=== PATIENT | female | born 1990 | race Caucasian/White ===

== ENCOUNTER 2018-10-12 09:27 | Emergency (ER) | payer MEDICAID ==
[2018-10-12 09:27] VITALS: BMI 41.3
[2018-10-12 11:00] VITALS: RESP 18
[2018-10-12 11:27] LABS: BASO % 0.2 % (0.0-2.0); EOS % 0.5 % (0.0-4.0); HEMOGLOBIN 12.7 g/dL (12.0-16.0); LYMPH # 3.4 K/uL (1.0-4.3); LYMPH % 34.9 % (20.0-40.0); MEAN CELL VOLUME 84.2 fl (81.0-99.0); MEAN CORPUSCULAR HEMOGLOBIN 27.5 pg (27.0-31.0); MEAN CORPUSCULAR HGB CONC 32.6 g/dL (33.0-37.0); MEAN PLATELET VOLUME 8.1 fl (7.2-11.7); MONO # 0.6 K/uL (0.0-0.8); MONO % 6.4 % (0.0-10.0); NEUT # 5.7 K/uL (1.8-7.0); NRBC % 0.5 % (0.0-0.0); RBC 4.61 Mil/uL (3.80-5.20); RED CELL DISTRIBUTION WIDTH 15.2 % (11.5-14.5); WHITE BLOOD COUNT 9.8 K/uL (4.8-10.8)
[2018-10-12 11:41] LABS: SQUAMOUS EPITHIAL 24 /hpf (0-5); URINE BACTERIA RARE (<OCC); URINE BILIRUBIN NEGATIVE (NEGATIVE); URINE BLOOD SMALL (NEGATIVE); URINE CLARITY CLOUDY (Clear); URINE COLOR YELLOW (YELLOW); URINE GLUCOSE (UA) NEG (NEGATIVE); URINE LEUKOCYTE ESTERASE TRACE Leu/uL (Negative); URINE PROTEIN NEGATIVE (NEGATIVE); URINE UROBILINOGEN 0.2-1.0 mg/dL (0.2-1.0)
[2018-10-12 11:43] LABS: BLOOD UREA NITROGEN 10 mg/dl (7-17); CALCIUM 9.7 mg/dL (8.4-10.2); GFR NON-AFRICAN AMERICAN > 60
--- NOTE | 2018-10-12 11:44 | ED PDOC ---
HPI: Abdomen Time Seen by Provider: 10/12/18 10:31 Chief Complaint (Nursing): Abdominal Pain Chief Complaint (Provider): Abdominal Pain History Per: Patient History/Exam Limitations: no limitations Onset/Duration Of Symptoms: Days (x1) Current Symptoms Are (Timing): Still Present Location Of Pain/Discomfort: Suprapubic Additional Complaint(s): 28 year old female with a past medical history of hypertension who is presenting to the ED for evaluation of lower abdominal pain onset yesterday. Patient states that yesterday she found out that she was using a home test. She admits that she doesnt remember her last period as they are very irregular and denies any vaginal bleeding or discharge. Of note, patient reports that she has had 1 previous full term with delivery. PMD: none provided Past Medical History Reviewed: Historical Data, Nursing Documentation, Vital Signs Vital Signs: Last Vital Signs Temp 97 F L 10/12/18 09:53 Pulse 87 10/12/18 09:53 Resp 18 10/12/18 09:53 BP 143/74 10/12/18 09:53 Pulse Ox 100 10/12/18 09:53 - Medical History PMH: HTN Denies: Chronic Kidney Disease, Sexually Transmitted Disease - Surgical History Surgical History: - Family History Family History: States: Unknown Family Hx - Social History Current smoker - smoking cessation education provided: No Alcohol: Social Drugs: Denies - Immunization History Hx Tetanus Toxoid Vaccination: No Hx Influenza Vaccination: Yes (December 2016) Hx Pneumococcal Vaccination: No - Home Medications Home Medications: Ambulatory Orders Medication Instructions Recorded Ibuprofen [Advil Liqui-Gels] 2 cap PO PRN PRN 01/22/17 Nitrofurantoin Macrocrystals 100 mg PO BID #10 cap 10/12/18 [Macrobid] - Allergies Allergies/Adverse Reactions: Allergies Allergy/AdvReac Type Severity Reaction Status Date / Time No Known Allergies Allergy Verified 01/22/17 12:34 Review of Systems ROS Statement: Except As Marked, All Systems Reviewed And Found Negative Gastrointestinal: Positive for: Abdominal Pain Genitourinary Female: Negative for: Vaginal Discharge, Vaginal Bleeding Physical Exam - Reviewed Nursing Documentation Reviewed: Yes Vital Signs Reviewed: Yes - Physical Exam Appears: Positive for: Well, Non-toxic, No Acute Distress Head Exam: Positive for: ATRAUMATIC, NORMAL INSPECTION, NORMOCEPHALIC Skin: Positive for: Normal Color, Warm, DRY Eye Exam: Positive for: Normal appearance Neck: Positive for: Normal Cardiovascular/Chest: Positive for: Regular Rate, Rhythm. Negative for: Murmur Respiratory: Positive for: Normal Breath Sounds. Negative for: Respiratory Distress Gastrointestinal/Abdominal: Positive for: Normal Exam, Soft. Negative for: Tenderness, Distended, Guarding, Rebound Back: Positive for: Normal Inspection. Negative for: L CVA Tenderness, R CVA Tenderness Extremity: Positive for: Normal ROM. Negative for: Deformity, Swelling Neurologic/Psych: Positive for: Alert, Oriented (x3). Negative for: Motor/ Sensory Deficits - Laboratory Results Result Diagrams: 10/12/18 10:21 10/12/18 10:21 - ECG O2 Sat by Pulse Oximetry: 100 (RA) Pulse Ox Interpretation: Normal Medical Decision Making Medical Decision Making: Time: 10:21 A/P: lower abdominal pain with early --Labs, ultrasound to r/o ectopic --Reassess patient [id number] Confirmed IUP. Pt at approx 7 weeks gestation. [facility]. Macrobid for UTI. -- Scribe Attestation: Documented by Kamilah Jeff, acting as a scribe for Tara Dennis MD. Provider Scribe Attestation: All medical record entries made by the Scribe were at my direction and person ally dictated by me. I have reviewed the chart and agree that the record accurately reflects my personal performance of the history, physical exam, medical decision making, and the department course for this patient. I have also personally directed, reviewed, and agree with the discharge instructions and disposition. Disposition - Clinical Impression Clinical Impression: , Urinary tract infection affecting care of mother in first trimester, antepartum - Patient ED Disposition Is Patient to be Admitted: No - Disposition Disposition: Routine/Home Disposition Time: 12:47 Condition: IMPROVED Prescriptions: Nitrofurantoin Macrocrystals [Macrobid] 100 mg PO BID #10 cap Instructions: Asymptomatic Bacteriuria, Medications and , - The First Month, Urinary Tract Infection, Adult (DC) Forms: [employer] ([place])
--- NOTE | 2018-10-12 11:52 | US ---
PROCEDURE: OB Pelvic Ultrasound HISTORY: Lower abdominal pain LMP 08/28/2018 COMPARISON: None available. FINDINGS: UTERUS: Gestational sac: Present mean sac diameter 2.2 cm corresponding to 6 weeks 6 days Heart rate: 130 bpm. age (Ultrasound estimated): 7 weeks 0 days +/-0 weeks 3 days Maria T-gestational hemorrhage: None. Date of delivery (Ultrasound estimated) : 05/31/2019 Uterus measures 9.3 x 6.6 by 7.7 cm. Normal in size and appearance. CERVIX: RIGHT OVARY: Measures 3.6 x 2.8 x 2.5 cm. No mass lesion. Normal flow. LEFT OVARY: Measures 3.6 x 3.5 x 2.9 cm. No solid mass. Normal flow. FREE FLUID: None. OTHER FINDINGS: None. IMPRESSION: Single intrauterine gestation with cardiac activity whose ultrasound parameters correspond to an ultrasound estimate of 7 weeks 0 days +/-0 weeks 3 days with an estimated date of delivery of 05/31/2019. Clinical dates are 6 weeks 3 days with an estimated date of delivery by LMP of 06/04/2019. No perigestational hemorrhage seen. No adnexal masses.
[2018-10-12 13:16] VITALS: BP 136/74; PULSE 74; TEMP 98.3; O2SAT 98
== END 2018-10-12 13:15 | disposition home or self-care (01) ==
LOC: H.ER 09:27
DX: O23.41 Unspecified infection of urinary tract in pregnancy, first trimester (principal); Z3A.01 Less than 8 weeks gestation of pregnancy; O16.1 Unspecified maternal hypertension, first trimester

== ENCOUNTER 2018-10-26 15:22 | Emergency (ER) | payer MEDICAID ==
[2018-10-26 15:22] VITALS: BMI 41.3
[2018-10-26 15:50] VITALS: RESP 18; TEMP 99.4
[2018-10-26 16:42] LABS: BASO % 0.4 % (0.0-2.0); EOS # 0.1 K/uL (0.0-0.7); EOS % 0.5 % (0.0-4.0); LYMPH # 3.3 K/uL (1.0-4.3); LYMPH % 29.1 % (20.0-40.0); MEAN CELL VOLUME 84.4 fl (81.0-99.0); MEAN CORPUSCULAR HEMOGLOBIN 27.5 pg (27.0-31.0); MEAN CORPUSCULAR HGB CONC 32.6 g/dL (33.0-37.0); MEAN PLATELET VOLUME 7.8 fl (7.2-11.7); MONO # 0.6 K/uL (0.0-0.8); MONO % 5.1 % (0.0-10.0); NEUT # 7.4 K/uL (1.8-7.0); NEUT % 64.9 % (50.0-75.0); RBC 4.35 Mil/uL (3.80-5.20); WHITE BLOOD COUNT 11.4 K/uL (4.8-10.8)
[2018-10-26 16:49] LABS: ALB/GLOB RATIO 1.1 (1.0-2.1); ALBUMIN 4.3 g/dL (3.5-5.0); ALT/SGPT 22 U/L (9-52); AST/SGOT 19 U/L (14-36); BLOOD UREA NITROGEN 10 mg/dl (7-17); CALCIUM 9.6 mg/dL (8.4-10.2); GFR NON-AFRICAN AMERICAN > 60
--- NOTE | 2018-10-26 17:00 | ED PDOC ---
HPI: Abdomen Time Seen by Provider: 10/26/18 16:30 Chief Complaint (Nursing): Abdominal Pain Chief Complaint (Provider): 9 wks preg/ abd pain History Per: Patient History/Exam Limitations: no limitations Onset/Duration Of Symptoms: Days, Persistent Outside of [place] travel?: No Severity: None Pain Scale Rating Of: 5 Location Of Pain/Discomfort: Suprapubic Quality Of Discomfort: Cramping Associated Symptoms: Nausea Exacerbating Factors: None Alleviating Factors: None Additional History Per: Patient Additional Complaint(s): 28 yr old 9 weeks preg, female with hx of Hypertension presents to the ED c/o suprapubic pain for 2 days. Pt states she was seen in ED for same and dx with UTI for which she was given Macrobid for 5 days. Pt reports she took full course but states suprapubic pain did not completely subside. Pt denies nausea/vomiting, vaginal bleeding, vaginal discharge, itchiness or burning, frequency, urgency and fever. Abnormal Vaginal Bleeding: No Last Menstral Period: unknown : 2 Para: 1 Miscarriage: 0 Past Medical History Vital Signs: Last Vital Signs Temp 99.4 F 10/26/18 15:35 Pulse 94 H 10/26/18 15:35 Resp 18 10/26/18 15:35 BP 121/81 10/26/18 15:35 Pulse Ox 98 10/26/18 15:35 - Medical History PMH: HTN Denies: Chronic Kidney Disease, Sexually Transmitted Disease - Surgical History Surgical History: - Family History Family History: States: Unknown Family Hx - Living Arrangements Living Arrangements: With Family - Social History Alcohol: None Drugs: Denies - Immunization History Hx Tetanus Toxoid Vaccination: No Hx Influenza Vaccination: Yes (December 2016) Hx Pneumococcal Vaccination: No - Home Medications Home Medications: Ambulatory Orders Medication Instructions Recorded Ibuprofen [Advil Liqui-Gels] 2 cap PO PRN PRN 01/22/17 Nitrofurantoin Macrocrystals 100 mg PO BID #10 cap 10/12/18 [Macrobid] - Allergies Allergies/Adverse Reactions: Allergies Allergy/AdvReac Type Severity Reaction Status Date / Time No Known Allergies Allergy Verified 10/26/18 15:38 Review of Systems Constitutional: Negative for: Fever, Chills, Weakness, Malaise Eyes: Negative for: Pain ENT: Negative for: Mouth Swelling, Throat Swelling Cardiovascular: Negative for: Chest Pain Respiratory: Negative for: Cough, Shortness of Breath, SOB with Exertion Gastrointestinal: Positive for: Nausea, Abdominal Pain (suprapubic ) Genitourinary Female: Positive for: Pelvic Pain. Negative for: Dysuria, Frequency, Incontinence, Hematuria, Vaginal Discharge Skin: Negative for: Rash Neurological: Negative for: Weakness Physical Exam - Reviewed Nursing Documentation Reviewed: Yes Vital Signs Reviewed: Yes - Physical Exam Appears: Positive for: Well, Non-toxic, No Acute Distress Head Exam: Positive for: ATRAUMATIC, NORMAL INSPECTION, NORMOCEPHALIC Skin: Positive for: Normal Color (acanthosis of the neck ), Warm Eye Exam: Positive for: Normal appearance, PERRL ENT: Positive for: Normal ENT Inspection Neck: Positive for: Normal, Painless ROM Cardiovascular/Chest: Positive for: Regular Rate, Rhythm Respiratory: Positive for: CNT, Normal Breath Sounds Pulses-Radial (L): 2+ Pulses-Radial (R): 2+ Gastrointestinal/Abdominal: Positive for: Normal Exam, Soft Pelvic Exam: Positive for: Other (suprapubic tenderness ) Back: Positive for: Normal Inspection Extremity: Positive for: Normal ROM Neurological/Psych: Positive for: Awake, Alert, Normal Tone, Oriented Comments: PT IS OBESE - Laboratory Results Result Diagrams: 10/26/18 16:35 10/26/18 16:35 Lab Results: Total Bilirubin 0.6 mg/dl (0.2-1.3) 10/26/18 16:35 AST 19 U/L (14-36) 10/26/18 16:35 ALT 22 U/L (9-52) 10/26/18 16:35 Alkaline Phosphatase 52 U/L (38-126) 10/26/18 16:35 Total Protein 8.2 G/DL (6.3-8.2) 10/26/18 16:35 Albumin 4.3 g/dL (3.5-5.0) 10/26/18 16:35 Globulin 3.9 gm/dL (2.2-3.9) 10/26/18 16:35 Albumin/Globulin Ratio 1.1 (1.0-2.1) 10/26/18 16:35 Urine POC: Positive - ECG O2 Sat by Pulse Oximetry: 98 - Progress ED Course And Treament: CMP CBC UA-NEG U C&S BETA HCG OB TRANSVAG US TYLENOL 1740: PT REEVALUATED, PAIN IMPROVED AFTER TYLENOL. LAB REVIEWED NO FURTHER TX NEED. PT STATES SHE HAS [facility] AP[facility] ON WEDNESDAY AT [facility], PT ENCOURAGED TO GO TO APPOINTMENT. PT WILL BE D/C HOME. GIVEN RETURN TO ED PREC AUTIONS. Condition: Re-examined Disposition - Clinical Impression Clinical Impression: Abdominal pain during - Patient ED Disposition Is Patient to be Admitted: No Counseled Patient/Family Regarding: Diagnosis, Need For Followup - Disposition Disposition: Routine/Home Disposition Time: 17:30 Condition: GOOD Instructions: Stomach Pain in Early Print Language: TAJIK - POA Present On Arrival: None
[2018-10-26 17:07] LABS: SQUAMOUS EPITHIAL 10 /hpf (0-5); URINE BACTERIA RARE (<OCC); URINE BILIRUBIN NEGATIVE (NEGATIVE); URINE BLOOD NEGATIVE (NEGATIVE); URINE CLARITY CLOUDY (Clear); URINE COLOR YELLOW (YELLOW); URINE GLUCOSE (UA) NEG (NEGATIVE); URINE LEUKOCYTE ESTERASE NEG Leu/uL (Negative); URINE PROTEIN 30 mg/dL (NEGATIVE)
--- NOTE | 2018-10-26 17:14 | US ---
Date of service: 10/26/2018 PROCEDURE: OB Pelvic Ultrasound HISTORY: PREG, PELVIC PAIN LMP 08/28/2018 COMPARISON: None available. FINDINGS: UTERUS: Gestational sac: Gestational sac diameter 3.6 cm equal to 8 weeks 5 days gestational age. [place]-rump length 25 mm equivalent to 9 weeks 2 days gestational age. Heart rate: 177 bpm. age (Ultrasound estimated): 9 weeks 0 days Maria T-gestational hemorrhage: None. Date of delivery (Ultrasound estimated) : 05/31/2019 4 mm yolk sac identified Uterus measures 11.7 x 7.4 x 6.6 cm. Normal in size and appearance. CERVIX: Long and closed. No cervical abnormality seen. RIGHT OVARY: Not visualized LEFT OVARY: Measures 3.4 x 2.2 x 2.3 cm. No solid mass. Normal flow. FREE FLUID: None. OTHER FINDINGS: None. IMPRESSION: Single live intrauterine gestation of approximately 9 weeks 0 days. No subchorionic hemorrhage. Unremarkable left ovary. Nonvisualized right ovary.
[2018-10-26 22:41] VITALS: BP 132/73; PULSE 83; O2SAT 99
== END 2018-10-26 17:44 | disposition home or self-care (01) ==
LOC: H.ER 15:22
DX: O26.891 Other specified pregnancy related conditions, first trimester (principal); Z3A.09 9 weeks gestation of pregnancy; O16.1 Unspecified maternal hypertension, first trimester

== ENCOUNTER 2018-11-24 04:42 | Emergency (ER) | payer MEDICAID ==
[2018-11-24 04:43] VITALS: BMI 41.3
[2018-11-24 04:56] VITALS: TEMP 98.1
[2018-11-24] MEDS ORDERED: Sodium Chloride 0.9% 1,000 ML IV STA (05:22)
--- NOTE | 2018-11-24 05:33 | ED PDOC ---
HPI: Abdomen Time Seen by Provider: 11/24/18 04:46 Chief Complaint (Nursing): Abdominal Pain Chief Complaint (Provider): Abdominal Pain History Per: Patient, Customs Investigator (Staci #[id number]) History/Exam Limitations: no limitations Onset/Duration Of Symptoms: Hrs (x 3) Current Symptoms Are (Timing): Still Present Location Of Pain/Discomfort: Suprapubic Quality Of Discomfort: Sharp Associated Symptoms: Back Pain Additional Complaint(s): 28 year old () approximately 12 week female presents to the ED for evaluation of sharp, lower abdominal pain and upper buttock pain that began about 3 hours prior to arrival. Patient took Tylenol with some relief. Denies fever, nausea, vomiting, diarrhea, constipation, vaginal discharge, vaginal bleeding, dysuria, hematuria, frequency and any complications with the thus far. PMD: Dr. Willie Schneider Past Medical History Reviewed: Historical Data, Nursing Documentation, Vital Signs Vital Signs: Last Vital Signs Temp 98.1 F 11/24/18 04:44 Pulse 92 H 11/24/18 04:44 Resp 17 11/24/18 04:44 BP 133/78 11/24/18 04:44 Pulse Ox 99 11/24/18 04:44 - Medical History PMH: HTN Denies: Chronic Kidney Disease, Sexually Transmitted Disease - Surgical History Surgical History: - Family History Family History: States: Unknown Family Hx - Immunization History Hx Tetanus Toxoid Vaccination: No Hx Influenza Vaccination: Yes (December 2016) Hx Pneumococcal Vaccination: No - Home Medications Home Medications: Ambulatory Orders Medication Instructions Recorded Ibuprofen [Advil Liqui-Gels] 2 cap PO PRN PRN 01/22/17 Nitrofurantoin Macrocrystals 100 mg PO BID #10 cap 10/12/18 [Macrobid] - Allergies Allergies/Adverse Reactions: Allergies Allergy/AdvReac Type Severity Reaction Status Date / Time No Known Allergies Allergy Verified 10/26/18 15:38 Review of Systems ROS Statement: Except As Marked, All Systems Reviewed And Found Negative Constitutional: Negative for: Fever, Chills Gastrointestinal: Positive for: Abdominal Pain (lower). Negative for: Nausea, Vomiting, Diarrhea Genitourinary Female: Negative for: Dysuria, Frequency, Incontinence, Hematuria, Vaginal Discharge, Vaginal Bleeding Musculoskeletal: Positive for: Other (upper buttock pain) Physical Exam - Reviewed Nursing Documentation Reviewed: Yes Vital Signs Reviewed: Yes - Physical Exam Appears: Positive for: No Acute Distress Head Exam: Positive for: ATRAUMATIC, NORMAL INSPECTION, NORMOCEPHALIC Skin: Positive for: Normal Color, Warm, Dry Eye Exam: Positive for: EOMI, Normal appearance, PERRL Neck: Positive for: Normal, Painless ROM, Supple Cardiovascular/Chest: Positive for: Regular Rate, Rhythm. Negative for: Murmur Respiratory: Positive for: Normal Breath Sounds. Negative for: Respiratory Distress Gastrointestinal/Abdominal: Positive for: Tenderness (suprapubic). Negative for: Mass, Guarding Pelvic Exam: Positive for: External Exam Normal, Speculum Exam Normal, No Cerv. Motion Tender. Negative for: Tender Adnexa Back: Positive for: Normal Inspection. Negative for: L CVA Tenderness, R CVA Tenderness Extremity: Positive for: Normal ROM (x 4). Negative for: Deformity Neurological/Psych: Positive for: Awake, Alert, Normal Tone, Oriented (x 3]). Negative for: Motor/Sensory Deficits - ECG O2 Sat by Pulse Oximetry: 99 (RA) Pulse Ox Interpretation: Normal Medical Decision Making Medical Decision Makin:15 A&P: abdominal pain and back pain in a female. Differential diagnosis include but are not limited to: round ligament pain, constipation, gas, UTI and dehydration Less likely threatened . Not concerned for acute appendicitis. Brain Wave Technician for pelvic exam was Garland MakerJose Phan. Orders: Orders --BMP --CBC --Beta-HCG --Urine preg --Urine dip --Urine cx --UA --NS IV 1,0000 --US 7:00 --Case endorsed to Dr. Abernathy pending U/S, re-eval, and final dispo Scribe Attestation: Documented by Brenda Guthrie, acting as a scribe Lexy Encarnacion MD Provider Scribe Attestation: All medical record entries made by the Scribe were at my direction and personally dictated by me. I have reviewed the chart and agree that the record accurately reflects my personal performance of the history, physical exam, medical decision making, and the department course for this patient. I have also personally directed, reviewed, and agree with the discharge instructions and disposition. Disposition - Clinical Impression Clinical Impression: Abdominal pain in - Patient ED Disposition Is Patient to be Admitted: Transfer of Care Counseled Patient/Family Regarding: Studies Performed - Disposition Referrals: Willie Schneider MD [Primary Care Provider] - Disposition: Transfer of Care Disposition Time: 07:00 (.) Condition: STABLE Forms: [employer] (Albanian) Patient Signed Over To: Ranjit Abernathy Handoff Comments: pending U/S, re-eval, final dispo
[2018-11-24 06:42] LABS: BASO % 0.2 % (0.0-2.0); EOS # 0.1 K/uL (0.0-0.7); EOS % 0.5 % (0.0-4.0); HEMOGLOBIN 11.8 g/dL (12.0-16.0); LYMPH # 3.1 K/uL (1.0-4.3); LYMPH % 29.4 % (20.0-40.0); MEAN CELL VOLUME 84.8 fl (81.0-99.0); MEAN CORPUSCULAR HEMOGLOBIN 28.2 pg (27.0-31.0); MEAN CORPUSCULAR HGB CONC 33.2 g/dL (33.0-37.0); MEAN PLATELET VOLUME 8.3 fl (7.2-11.7); MONO # 0.7 K/uL (0.0-0.8); NEUT # 6.7 K/uL (1.8-7.0); NEUT % 62.9 % (50.0-75.0); NRBC % 0.1 % (0.0-0.0); RBC 4.19 Mil/uL (3.80-5.20); RED CELL DISTRIBUTION WIDTH 15.7 % (11.5-14.5); WHITE BLOOD COUNT 10.7 K/uL (4.8-10.8)
[2018-11-24 07:03] LABS: BLOOD UREA NITROGEN 6 mg/dl (7-17); CALCIUM 9.1 mg/dL (8.4-10.2); GFR NON-AFRICAN AMERICAN > 60
--- NOTE | 2018-11-24 07:08 | ED PDOC ---
- Laboratory Results Result Diagrams: 11/24/18 05:50 11/24/18 05:50 Interpretation Of Abn Labs: no acute - ECG O2 Sat by Pulse Oximetry: 99 (RA) - Progress ED Course And Treament: 1144: Stable. AAOx3. Pain free. Tolerated PO. Fu with pcp. SLIUP. Medical Decision Making Medical Decision Makin: Pending labs results and reevaluate. Disposition - Clinical Impression Clinical Impression: Abdominal pain in - POA Present On Arrival: None - Disposition Referrals: Willie Schneider MD [Primary Care Provider] - 11/28/18 Disposition: Routine/Home Disposition Time: 11:44 Condition: STABLE Additional Instructions: Return if not better in 3 days. Instructions: Stomach Pain in Early Forms: [facility] ED School/Work Excuse
[2018-11-24 07:13] LABS: SQUAMOUS EPITHIAL 13 /hpf (0-5); URINE BILIRUBIN NEGATIVE (NEGATIVE); URINE BLOOD NEGATIVE (NEGATIVE); URINE CLARITY CLOUDY (Clear); URINE COLOR YELLOW (YELLOW); URINE GLUCOSE (UA) NEG (NEGATIVE); URINE LEUKOCYTE ESTERASE NEG Leu/uL (Negative); URINE PROTEIN 30 mg/dL (NEGATIVE); URINE UROBILINOGEN 0.2-1.0 mg/dL (0.2-1.0)
--- NOTE | 2018-11-24 09:55 | US ---
Date of service: 11/24/2018 PROCEDURE: OB Pelvic Ultrasound HISTORY: 12 wk preg, lower abd pain/back pain LMP: 08/24/2018 COMPARISON: None available. FINDINGS: UTERUS: Gestational sac: Single live intrauterine fetus in variable presentation. BPD: 2.5 cm corresponding to 14 weeks and 1 day of gestational age. HC: 9.3 cm corresponding to 14 weeks and 2 days of gestational age. AC: 7.8 cm corresponding to 14 weeks and 2 days of gestational age. FL: 1.4 cm corresponding to 14 weeks and 1 day of gestational age. Heart rate: 152 bpm. age (Ultrasound estimated): 14 weeks and 2 day. Maria T-gestational hemorrhage: None. Date of delivery (Ultrasound estimated) : 05/23/2019 Placenta is anterior. CERVIX: Measures 3.5 cm. Long and closed. No cervical abnormality seen. RIGHT OVARY: Measures 4.6 x 3.4 x 2.3 cm. No mass lesion. Normal flow. LEFT OVARY: Not visualized. FREE FLUID: None. OTHER FINDINGS: None. IMPRESSION: Single live intrauterine fetus in variable presentation with mean gestational age of 14 weeks and 2 days. The estimated date of delivery by ultrasound is 05/23/2019. Please note this is a limited OB ultrasound performed on an emergent basis. Follow-up dedicated anatomic survey is advised.
[2018-11-24 12:13] VITALS: BP 128/78; PULSE 78; RESP 18; O2SAT 100
== END 2018-11-24 12:12 | disposition home or self-care (01) ==
LOC: H.ER 04:42
DX: O26.899 Other specified pregnancy related conditions, unspecified trimester (principal); O16.2 Unspecified maternal hypertension, second trimester; Z3A.14 14 weeks gestation of pregnancy
CPT/HCPCS: 76801; 80048; 81003; 84702; 85025; 87086; 87491; 87591; 99284; J7030

== ENCOUNTER 2018-12-17 12:00 | Emergency (ER) | payer MEDICAID ==
[2018-12-17 14:32] LABS: SQUAMOUS EPITHIAL 4 /hpf (0-5); URINE BILIRUBIN NEGATIVE (NEGATIVE); URINE BLOOD MODERATE (NEGATIVE); URINE CLARITY SLIGHTY-CLOUDY (Clear); URINE COLOR YELLOW (YELLOW); URINE GLUCOSE (UA) NEG (NEGATIVE); URINE LEUKOCYTE ESTERASE SMALL Leu/uL (Negative); URINE PROTEIN 30 mg/dL (NEGATIVE); URINE UROBILINOGEN 0.2-1.0 mg/dL (0.2-1.0)
[2018-12-17 20:43] VITALS: BP 161/60; PULSE 98; RESP 18; TEMP 97.9; O2SAT 100
== END 2018-12-17 15:15 | disposition home or self-care (01) ==
LOC: H.EROB2 12:00 → H.EROB 12:30 → H.EROB2 15:15
DX: O26.92 Pregnancy related conditions, unspecified, second trimester (principal); R30.0 Dysuria; O26.852 Spotting complicating pregnancy, second trimester; Z3A.16 16 weeks gestation of pregnancy; O23.42 Unspecified infection of urinary tract in pregnancy, second trimester

== ENCOUNTER 2018-12-19 02:35 | Emergency (ER) | payer MEDICAID ==
--- NOTE | 2018-12-19 03:30 | OBDCSUM ---
Datetime: 12/19/2018 03:21 Discharged to, Provider: Home Follow up at, Provider: Clinic Disch Instr Activity: Normal activity Disch Instr Diet: Regular Discharge Instructions, Provider: Routine instructions given Discharge Time: 12/19/2018 03:21 Follow up in weeks, Provider: DAVID for Disch Referrals: None Contraception discussed, Prov: Yes Discharge Diagnosis Prov Other: vaginal bleeding
--- NOTE | 2018-12-19 03:30 | OBHP ---
Datetime: 12/19/2018 03:20 IP Adm Impression: , intrauterine IP Admit Plan: Observation/Evaluation; Discharge home Admit Comment, IP Provider: Patient is a @ 16.5 wks history of CHTN with persistant vaginal bleeding. Patient reports she has had vaginal bleeding for past 3 days, came to ER 12/17, was noticed to have blood tinged discharge and +UTI, was started on Macrobid which patient reports she has been c ompliant with. Patient returns because she is having increased vaginal bleeding. Some cramping, other zamorano no fever, pt tolerating pain laying in bed. On speculum exam, blood tinged mucous noted, no acti ve bleeding present from cervix. Cervix appeared closed on exam. Patient at this point does not to ap pear to be actively miscarring. Patient has has no signs of chorio or active bleeding. Patient has a history of CHTN, currently not on medication and has nml BPs 120s/60s. FHR obtained and nml. All othe r vital signs stable. Patient discharged home with bleeding discharge instructions. If continued blee ding/heavier or other symptoms present return to ER. If bleeding stops, present to clinic and have fo llow up U/S done. Continue Macrobid. All questions answered Pelvic Type - PN: Adequate Extremities - PN: Normal Abdomen - PN: Normal Back - PN: Normal Breast - PN: Normal Lungs - PN: Normal Heart - PN: Normal Thyroid - PN: Normal Neurologic - PN: Normal HEENT - PN: Normal General - PN: Normal FHR - Baseline A Provider: 140 EGA AdmitDate IP: 16.5 Vital Signs Provider: Reviewed; Within Normal Limits IP Chief Complaint: Vaginal bleeding NICHD Decel Fetus A IP Provider: None Dilatation, Provider: closed Genitourinary Exam: Normal DTRs - PN: Normal Datetime: 12/17/2018 13:44 Contraction Comments Provider: absent Comments, ACOG Physical Exam: Gen: NAD Chest: RRR, S1S2 persent Lungs: CTAB Abdomen: SOft, suprapubic tenderness, ND Ext: NO pedal edema SSE: No active vaginal bleeding, thick mucoid discharge noted.
[2018-12-19 09:48] VITALS: BP 122/68; PULSE 104
== END 2018-12-19 03:28 | disposition home or self-care (01) ==
LOC: H.EROB2 02:35
DX: O20.9 Hemorrhage in early pregnancy, unspecified (principal); Z3A.16 16 weeks gestation of pregnancy

== ENCOUNTER 2018-12-19 10:48 | Emergency (ER) | payer MEDICAID ==
--- NOTE | 2018-12-19 14:07 | US ---
Date of service: 12/19/2018 PROCEDURE: Limited ultrasound HISTORY: Vaginal bleeding, 16.5 weeks COMPARISON: 10/26/2018. First trimester ultrasound 11/24/2018. Limited ultrasound. Summary of findings on the comparison examination: Single live intrauterine fetus in variable presentation with mean gestational age of 14 weeks and 2 days. The estimated date of delivery by ultrasound is 05/23/2019. TECHNIQUE: Standard protocol for this study/examination. FINDINGS: Cephalic presentation. Fundal placenta. No evidence of abruption or previa Gestational age derived from LMP 16 weeks 5 days. LIS 05/31/2019. Gestational age derived from the following biometric parameters 17 weeks 3 days. LIS 05/26/2019. Biparietal diameter 3.71 cm Head circumference 14.22 cm Abdominal circumference 11.72 cm Femur length 2.42 cm Estimated weight 192.9 g Calculated cardiac rate 155 beats per min. Closed cervix measuring 3.00 cm IMPRESSION: Seventeen weeks 3 days live intrauterine gestation. Gestational concordance noted. Adequate interval progression compared to the prior study.
--- NOTE | 2018-12-19 14:08 | US ---
Date of service: 12/19/2018 PROCEDURE: Transvaginal ultrasound HISTORY: Vaginal bleeding, 16.5 weeks COMPARISON: 10/26/2018, 11/24/2018. TECHNIQUE: Standard protocol for this study/examination. FINDINGS: Findings described in greater detail in the Ob component of this study and summarized below in the Impression: IMPRESSION: Seventeen weeks 3 days live intrauterine gestation. Gestational concordance noted. Adequate interval progression compared to the prior study.
--- NOTE | 2018-12-19 15:24 | OBDCSUM ---
Datetime: 12/19/2018 15:10 Discharged to, Provider: Home Follow up at, Provider: Kishore Presley Instr Activity: Bedrest Disch Instr Diet: Regular Discharge Diet restrict Prov: Pelvic Rest Discharge Diagnosis, Provider: Antepartum Bleeding Discharge Time: 12/19/2018 15:10 Follow up in weeks, Provider: 12/29/18 Disch Referrals: None Disch Activity Restrictions: No sexual activity; Nothing in vagina - [place], tampons, douche Datetime: 12/19/2018 03:21 Discharge Instructions, Provider: Routine instructions given Contraception discussed, Prov: Yes Discharge Diagnosis Prov Other: vaginal bleeding
--- NOTE | 2018-12-19 15:24 | OBHP ---
Datetime: 12/19/2018 11:26 IP Adm Impression: , intrauterine IP Admit Plan: Observation/Evaluation; Discharge home Admit Comment, IP Provider: 28 y/o , 16.5 weeks based on LMP 08/24/18 with LIS of 05/31/19 presen ts to [facility] with vaginal bleeding and cramping. Patient was seen on 12/17/18 for vaginal spotting and + UTI, discharged on Macrobid x 7 days. Patient's urinary symptoms improved but vaginal spotting persis eted and grtadually increased. So patient came in on 12/19/18, evaluated. Patient went to [facility] for US however patient was sent back to [facility]. Denies LOF, CTx, or abdominal pain, back pain, vaginal discharge. Denies any other symptoms. Last sexal activity few weeks ago. care: [place]. No complications so far in this per patient. Had 1st Trimes ter US done. OBHx: CS at 40 weeks due to failed induction, Hx gestational HTN in G1 PMHx: Gestation HTN in 1st , CHTN PSHx: C section Allergies: Denies Meds: PNVs F/H: DM- Mother Social Hx: Denies smoking,drugs, alcohol PE Gen: NAD Chest: RRR, S1S2 persent Lungs: CTAB Abdomen: Soft, mild lower abdominal tenderness, ND Ext: NO pedal edema SSE: Mild vaginal bleeding mixed with discharge SVE: Cervix: external os soft, fingertip. A/P: 28 y/o , 16.3 weeks based on LMP 08/24/18 with LIS of 05/31/19 with vaginal bleeding. - FHR 160s - No CTx on toco - TV and OB US and growth, CLM and Placenta evaluation Case discussed with Dr. Luis Fernando Bonilla, PGY1 OB Hospitalist Addendum: Pt seen and examined by me. Agree w/ above. 28 yo at 16+5 wks w / bleeding x 4 days. Pt reports that she sees the blood w/ wiping. Pt also reports mild cramping. On exam, pt appears comfortable. VE: ext os slightly open/ long. Spec: light to mod blood in vault, no active bleeding seen. U/s: SLIUP at 17+3 wks, closed cervix measuring 3 cm. Reviewed results w/ the pt. Explained that this may be an early miscarriage or may resolve. Rec that she go home, rest and po hydrate. Redc pelvic rest as well Pt given SAB precautions. Pt has a f/u appoint w/ Kishore Gutierrez on 12/29/2018. (ES) Abdomen - PN: Normal Back - PN: Normal Lungs - PN: Normal Heart - PN: Normal Neurologic - PN: Normal General - PN: Normal FHR - Baseline A Provider: 160 Membranes, Provider: Intact Contraction Comments Provider: None Comments, ACOG Physical Exam: Gen: NAD Chest: RRR, S1S2 persent Lungs: CTAB Abdomen: SOft, suprapubic tenderness, ND Ext: NO pedal edema SSE: Mild vaginal bleeding mixed with discharge SVE: Cervix: external os soft, fingertip. EGA AdmitDate IP: 16.5 Vital Signs Provider: Reviewed; Within Normal Limits IP Chief Complaint: Vaginal bleeding Dilatation, Provider: 0 Effacement, Provider: 0 Station, Provider: -3 Genitourinary Exam: Abnormal
[2018-12-19 19:32] VITALS: BP 138/73; PULSE 111; O2SAT 98
== END 2018-12-19 15:30 | disposition home or self-care (01) ==
LOC: H.EROB2 10:48
DX: O20.9 Hemorrhage in early pregnancy, unspecified (principal); O26.92 Pregnancy related conditions, unspecified, second trimester; R10.2 Pelvic and perineal pain; Z3A.16 16 weeks gestation of pregnancy

== ENCOUNTER 2018-12-21 13:12 | Emergency (ER) | payer MEDICAID ==
[2018-12-21 13:40] VITALS: BMI 39.9
--- NOTE | 2018-12-21 14:51 | US ---
Date of service: 12/21/2018 PROCEDURE: OB Pelvic Ultrasound HISTORY: Undetectable FHR by Doppler COMPARISON: 12/19/2018. FINDINGS: UTERUS: There is no evidence of intrauterine gestation. The central endometrial echo complex is heterogeneous and measures 16 mm. CERVIX: Measures 3.4 cm. FREE FLUID: None. OTHER FINDINGS: None. IMPRESSION: No evidence of intrauterine gestation. The central endometrial echo complex is heterogeneous and measures 16 mm.
--- NOTE | 2018-12-21 15:49 | OBHP ---
Datetime: 12/21/2018 13:42 IP Adm Impression: , intrauterine IP Chief Complaint Other: Vaginal bleeding, no FHR on doppler IP Admit Plan: Observation/Evaluation Admit Comment, IP Provider: HPI: Fanny is a 28 year old at 17.0 weeks via LMP and first tri US who was sent to the ED after a routine OB visit today. She was seen several times in the last 3 days for vaginal bleeding and cramping. She had an US done 12/19 that showed a viable IUP consistent with her LMP/LIS. She also had a speculum exam that showed a closed cervix. Later that day the patient rep orts she went to [facility] for the same complaint and she was told there was a heart rate s een and her cervix was still closed. After she went home that night she said she had worse cramping a nd passed several clots the size of her palm, but nothing else. She went to her regularly scheduled O B visit today and they could not find a FHR with doppler so she was sent here for further evaluation. She continues to have vaginal bleeding, though it is less than before. provider: Kishore Gutierrez (established care at the [facility]) History 1 previous at term after a failed IOL PMH Chronic HTN - she is not currently being treated for this/seeking care for this condition PSH x1 Medications PNV Allergies NKDA Social No tobacco, alcohol or drug use during the FH Not significant PHYSICAL EXAM Vitals reviewed, elevated HALLIE d/t chronic HTN labs: A+ Bedside US showed no fetus visualized, what appears to be blood clot filling the uterus ASSESSMENT/PLAN: 28 year old at 17.0 weeks here for concern of second trimester loss, high david spicion based on bedside US - Sending patient for formal US through the US department to confirm loss Plan discussed with attending, Dr. Alfaro. Tonya Valadez MD OB Fellow Patient was seen with the resident I agree with the note. Patient to follow-up with PMD Abdomen - PN: Normal Lungs - PN: Normal Heart - PN: Normal HEENT - PN: Normal General - PN: Normal Gestation - Est Wks by US: 17.0 Vital Signs Provider: Reviewed Datetime: 12/19/2018 11:26 EGA AdmitDate IP: 16.5
[2018-12-21 20:15] VITALS: BP 138/72; PULSE 101
== END 2018-12-21 16:00 | disposition home or self-care (01) ==
LOC: H.EROB2 13:12
DX: O20.9 Hemorrhage in early pregnancy, unspecified (principal); Z3A.17 17 weeks gestation of pregnancy